=== PATIENT | female | born 1985 | race Asian ===

== ENCOUNTER 2022-02-27 19:15 | Emergency (ER) | payer OTHER ==
[2022-02-27 19:35] VITALS: BP 109/75
--- NOTE | 2022-02-28 03:42 | XRay Report ---
CHEST 2 VIEWS INDICATION / CLINICAL INFORMATION: cp X SEVERAL DAYS. COMPARISON: None available. FINDINGS: SUPPORT DEVICES: None. HEART / MEDIASTINUM: No significant abnormality. LUNGS / PLEURA: No significant pulmonary or pleural abnormality. No pneumothorax. ADDITIONAL FINDINGS: No significant additional findings. IMPRESSION: 1. No acute findings. Signer Name: Alicia Ashby MD Signed: 02/28/2022 3:37 AM Workstation Name: [id number]
[2022-02-28 03:58] LABS: Basophils # (Auto) 0.2 K/mm3 (0.0-0.1); Basophils % (Auto) 2.3 % (0.0-1.8); Eosinophils # (Auto) 0.6 K/mm3 (0.0-0.4); Eosinophils % (Auto) 8.9 % (0.0-4.3); Lymphocytes # (Auto) 2.4 K/mm3 (1.2-5.4); Lymphocytes % (Auto) 33.7 % (13.4-35.0); Mean Corpuscular HGB Conc 33 % (30-34); Mean Corpuscular Volume 84 fl (79-97); Monocytes # (Auto) 0.3 K/mm3 (0.0-0.8); Monocytes % (Auto) 4.7 % (0.0-7.3); Platelet Count 365 K/mm3 (140-440); Red Cell Distribution Width 13.5 % (13.2-15.2)
[2022-02-28 04:46] LABS: Alanine Aminotransferase 10 units/L (7-56); Blood Urea Nitrogen 8 mg/dL (7-17); Calcium 9.1 mg/dL (8.4-10.2); Hemolysis Index 4
[2022-02-28 05:04] LABS: BUN/Creatinine Ratio 13
--- NOTE | 2022-02-28 05:25 | Emergency Department Report ---
ED General Adult HPI - General Chief complaint: Chest Pain Stated complaint: CHEST PAIN Time Seen by Provider: 02/28/22 02:59 Source: patient Mode of arrival: Ambulatory Limitations: No Limitations - History of Present Illness Initial comments: 36-year-old female no sniffing past medical history presents emerged department complaining of multiple episodes of chest discomfort associated with palpitations for unknown etiology creating some sensations of anxiety over the past 4 to 5 days and progressive worsening fashion to the point of insomnia over the last 2 nights. She reports no known triggers or factors, chest trauma, fever, chills, sweats, hemoptysis, hematemesis hematochezia, no new medications preceding the symptoms he attempted some home remedies which were unsuccessful and now 6 further evaluation at emergency department Improves with: none Worsens with: none Associated Symptoms: chest pain, loss of appetite. denies: denies other symptoms, confusion, cough, malaise, shortness of breath, weakness - Related Data Previous Rx's Medication Instructions Recorded Last Taken Type hydrOXYzine PAMOATE [Vistaril] 25 mg PO Q6HR PRN #20 capsule 02/28/22 Unknown Rx Allergies Allergy/AdvReac Type Severity Reaction Status Date / Time No Known Allergies Allergy Verified 02/27/22 19:35 ED Review of Systems ROS: Stated complaint: CHEST PAIN Other details as noted in HPI Comment: All other systems reviewed and negative ED Past Medical Hx - Past Medical History Previous Medical History?: No - Surgical History Past Surgical History?: No - Social History Smoking Status: Never Smoker - Medications Home Medications: Home Medications Medication Instructions Recorded Confirmed Last Taken Type hydrOXYzine PAMOATE [Vistaril] 25 mg PO Q6HR PRN #20 capsule 02/28/22 Unknown Rx ED Physical Exam - General Limitations: No Limitations General appearance: alert, in no apparent distress - Head Head exam: Present: atraumatic, normocephalic - Eye Eye exam: Present: normal appearance, PERRL, EOMI Pupils: Present: normal accommodation - ENT ENT exam: Present: normal exam, mucous membranes moist - Neck Neck exam: Present: normal inspection - Respiratory Respiratory exam: Present: normal lung sounds bilaterally. Absent: respiratory distress - Cardiovascular Cardiovascular Exam: Present: regular rate, normal rhythm. Absent: systolic murmur, diastolic murmur, rubs, gallop - GI/Abdominal GI/Abdominal exam: Present: soft, normal bowel sounds - Extremities Exam Extremities exam: Present: normal inspection - Back Exam Back exam: Present: normal inspection - Neurological Exam Neurological exam: Present: alert, oriented X3 - Psychiatric Psychiatric exam: Present: normal affect, normal mood - Skin Skin exam: Present: warm, dry, intact, normal color. Absent: rash ED Course Vital Signs 02/27/22 19:33 Temperature 98.4 F Pulse Rate 81 Respiratory 18 Rate Blood Pressure 109/75 O2 Sat by Pulse 99 Oximetry ED Medical Decision Making - Lab Data Result diagrams: 02/28/22 03:35 02/28/22 03:35 - EKG Data EKG shows normal: sinus rhythm Rate: normal - EKG Data Interpretation: normal EKG - Radiology Data Radiology results: report reviewed [facility] [address] [id number] XRay Report Signed Patient: MIGUEL ESPARZA MR#: [id number] : 1985 Acct:[id number] Age/Sex: 36 / F ADM Date: 02/27/22 Loc: ED Attending Dr: Ordering Physician: LORENA SHANNON Date of Service: 02/28/22 Procedure(s): XR chest routine 2V Accession Number(s): [id number] cc: LORENA SHANNON Fluoro Time In Minutes: CHEST 2 VIEWS INDICATION / CLINICAL INFORMATION: cp X SEVERAL DAYS. COMPARISON: None available. FINDINGS: SUPPORT DEVICES: None. HEART / MEDIASTINUM: No significant abnormality. LUNGS / PLEURA: No significant pulmonary or pleural abnormality. No pneumothorax. ADDITIONAL FINDINGS: No significant additional findings. IMPRESSION: 1. No acute findings. Signer Name: Alicia Ashby MD Signed: 02/28/2022 3:37 AM Workstation Name: [id number] Transcribed By: Dictated By: Alicia Ashby MD Electronically Authenticated By: Alicia Ashby MD Signed Date/Time: 02/28/22336 DD/ 6 TD/TT: - Medical Decision Making This patient presents with chest pain that is very unlikely angina or acute coronary syndrome. The emergency department evaluation has not identified any cause for suspicion that this chest pain has a cardiac etiology. Based on their history, EKG (which showed no evidence of ischemia or infarction) and imaging, in addition to the patient's physical exam, I see no evidence at this time for a malignant etiology for the patient's chest pain. There is no acute evidence for pulmonary embolus, acute myocardial infarction, pneumothorax, Boerhaeve syndrome, cardiac tamponade, thoracic artery dissection, or any other emergent cardiac, pulmonary or aortic pathology. Given the low pre-test probability for cardiac etiology of chest pain and the absence of any sign of ischemia or infarction, discharge for outpatient follow-up and further evaluation is reasonable. I have explained to the patient that even though a cardiac problem is very unlikely, follow-up and further testing is required to reduce further the already small uncertainty that exists. Other life-threatening diagnoses have been considered. The patient understands the need to return immediately if their symptoms worsen or they develop any new symptoms, and not to engage in any significant exertional activity until follow-up is obtained. Critical care attestation.: If time is entered above; I have spent that time in minutes in the direct care of this critically ill patient, excluding procedure time. ED Disposition Clinical Impression: Chest pain Disposition: 01 HOME / SELF CARE / HOMELESS Is pt being admited?: No Does the pt Need Aspirin: No Condition: Stable Instructions: Nonspecific Chest Pain, Adult, Managing Anxiety, Adult, Panic A ttack Additional Instructions: You were evaluated emergency department today for chest pain. Your evaluation has shown no medicals conditions requiring emergent intervention at this time, however recommend that you follow-up with your primary care physician or your generalist soon as possible for further testing as an outpatient. Please schedule an appointment for follow-up with your primary care physician as soon as possible. Return to emergency department if you expands worsening uncontrolled chest pain, shortness of breath, lightheadedness, feeling faint, nausea, vomiting or any other concerning symptoms. Prescriptions: hydrOXYzine PAMOATE [Vistaril] 25 mg PO Q6HR PRN #20 capsule PRN Reason: Anxiety Referrals: BRODY HAY MD [Primary Care Provider] - 3-5 Days
--- NOTE | 2022-03-04 13:55 | Electrocardiograph Report ---
[facility] Test Date: 2022-02-27 Test Time: 19:39:46 Pat Name: MIGUEL ESPARZA Department: Room: Gender: F Policy And Planning Manager: ALEA : 1985 Requested By: AGUSTIN GORDON Order Number: [id number] Reading MD: Yobani Louis Measurements Intervals [place] Rate: 78 P: 76 [place]: 133 QRS: 72 QRSD: 72 T: 62 QT: 370 QTc: 423 Interpretive Statements Sinus rhythm No previous ECG available for comparison Electronically Signed On 03-04-2022 13:54:55 EDT by Yobani Louis
== END 2022-02-28 06:05 | disposition home or self-care (01) ==
LOC: ED 19:15
DX: R07.9 Chest pain, unspecified (principal)
CPT/HCPCS: 36415; 71046; 80053; 84484; 85025; 93005; 99283